=== PATIENT | male | born 1970 | race Caucasian/White ===

== ENCOUNTER 2019-01-17 05:05 | Emergency (ER) | payer MEDICAID ==
[~2019-01-17] VITALS: Ht 175.3 cm; Wt 114.0 kg
[2019-01-17] MEDS ORDERED: normal saline 1000ML IV soln IVB ONE (06:15)
[2019-01-17] MEDS ORDERED: ondansetron/PF 4mg/2ml inj IV ONE (06:15)
[2019-01-17] MEDS: morphine 4 MG/ML inj SYRINge IV PRN ×2 (07:06→07:59)
[2019-01-17 07:33] LABS: BASOPHILS % (AUTO) 0.5 % (0-1); EOSINOPHILS # (AUTO) 0.1 X10'3 (0-0.9); EOSINOPHILS % (AUTO) 1.3 % (0-6); HEMATOCRIT 40.1 % (42.0-52.0); HEMOGLOBIN 13.4 g/dl (14.0-17.9); LYMPHOCYTES # (AUTO) 1.3 X10'3 (1.1-4.8); MEAN CORPUSCULAR HEMOGLOBIN 31.6 PG (27.0-31.0); MEAN CORPUSCULAR HGB CONC 33.5 g/dL (33.0-36.5); MEAN CORPUSCULAR VOLUME 94.2 FL (78-98); MONOCYTES # (AUTO) 0.6 X10'3 (0-0.9); MONOCYTES % (AUTO) 8.9 % (2-12); NEUTROPHILS # (AUTO) 4.8 X10'3 (1.8-7.7); NEUTROPHILS % (AUTO) 70.3 % (42-75); PLATELET COUNT 173 X10'3 (140-440); RED BLOOD COUNT 4.26 X10'6 (4.70-6.10); RED CELL DISTRIBUTION WIDTH 14.3 % (11.5-14.5); WHITE BLOOD COUNT 6.8 X10'3 (4.5-11.0)
[2019-01-17 08:02] LABS: ALANINE AMINOTRANSFERASE 30 U/L (12-78); ALBUMIN 3.4 G/DL (3.4-5.0); ALBUMIN/GLOBULIN RATIO 0.9 (1.1-1.5); ALKALINE PHOSPHATASE 80 IU/L (46-116); ANION GAP 7 (8-16); ASPARTATE AMINO TRANSFERASE 12 U/L (10-37); BILIRUBIN,TOTAL 0.3 MG/DL (0.1-1.0); BLOOD UREA NITROGEN 13 MG/DL (7-18); BUN/CREATININE RATIO 18.3 (5.4-32.0); CALCIUM 9.2 MG/DL (8.5-10.1); CHLORIDE 104 MMOL/L (99-107); CREATININE 0.71 MG/DL (0.60-1.10); GLUCOSE 111 MG/DL (70-104); POTASSIUM 4.1 MMOL/L (3.5-5.1); SODIUM 140 MMOL/L (135-145); TOTAL CARBON DIOXIDE 28.6 MMOL/L (24-32); eGFR > 90 ML/MIN
[2019-01-17 08:04] LABS: CLARITY,URINE SLIGHTLY CLOUDY (Clear); COLOR,URINE YELLOW (Yellow); GLUCOSE, URINE NEGATIVE (Neg); KETONES,URINE NEGATIVE (Neg); LEUKOCYTE ESTERASE ,URINE NEGATIVE (Neg); NITRITES, URINE NEGATIVE (Neg); OCCULT BLOOD,URINE SMALL (Neg); PROTEIN,URINE NEGATIVE (Neg); UA COLLECTION TYPE CLN CATCH MIDSTREAM; UROBILINOGEN,URINE 0.2 E.U/dL (0.2-1.0)
[2019-01-17 08:05] VITALS: BP 146/98
[2019-01-17 08:10] LABS: HYALINE CASTS 0-3 /LPF (NEGATIVE); MUCUS STRANDS MANY /LPF (Neg); SQUAMOUS EPITHELIAL CELL,UR MANY /LPF (FEW)
[2019-01-17 08:11] LABS: BACTERIA,URINE 1+ /HPF (Neg); WBC,URINE 0-4 /HPF (0-4)
[2019-01-17 08:47] LABS: LIPASE 159 U/L (73-393)
[2019-01-17] MEDS ORDERED: famotidine 20mg tablet PO ONE (09:05)
[2019-01-17] MEDS ORDERED: mag hydrox/Alum hydrox/simeth 30ml oral suspension PO ONE (09:05)
[2019-01-17] MEDS ORDERED: simethicone 125mg capsule PO ONE (09:05)
[2019-01-17] MEDS ORDERED: HYDR-3965 PO (10:03)
[2019-01-17] MEDS ORDERED: FAMO40TA73 PO (10:03)
[2019-01-17] MEDS ORDERED: HYDROcodone/acetaminophen 5mg/325mg tablet PO ONE (10:10)
== END 2019-01-17 10:20 | disposition home or self-care (01) ==
LOC: ER 05:05
DX: K29.00 Acute gastritis without bleeding (principal); F17.200 Nicotine dependence, unspecified, uncomplicated; F12.90 Cannabis use, unspecified, uncomplicated; Z90.49 Acquired absence of other specified parts of digestive tract; Z98.890 Other specified postprocedural states; Z88.2 Allergy status to sulfonamides; Z88.1 Allergy status to other antibiotic agents; Z79.899 Other long term (current) drug therapy
CPT/HCPCS: 36415; 74176; 80053; 81001; 83690; 85025; 85610; 96361; 96374; 96375; 96376; 99284; J2270; J2405; J7030

== ENCOUNTER 2019-05-08 08:52 | Emergency (ER) | payer MEDICAID ==
[~2019-05-08] VITALS: Ht 172.7 cm; Wt 110.5 kg
[~2019-05-08 08:52] MED LIST: FAMO40TA73 PO; adenosine 3mg/ml 2ml vial IV ONE
[2019-05-08] MEDS ORDERED: adenosine 3mg/ml 2ml vial IV ONE ×3 (09:00→09:25)
[2019-05-08 09:25] LABS: BASOPHILS % (AUTO) 0.3 % (0-1); EOSINOPHILS # (AUTO) 0.2 X10'3 (0-0.9); EOSINOPHILS % (AUTO) 1.3 % (0-6); HEMATOCRIT 44.3 % (35.0-45.0); HEMOGLOBIN 14.9 g/dl (12.0-16.0); LYMPHOCYTES # (AUTO) 3.7 X10'3 (1.1-4.8); LYMPHOCYTES % (AUTO) 26.8 % (21-51); MEAN CORPUSCULAR HGB CONC 33.7 g/dL (33.0-36.5); MEAN CORPUSCULAR VOLUME 92.2 FL (78-98); MEAN PLATELET VOLUME 9.1 FL (7.4-10.4); MONOCYTES # (AUTO) 0.9 X10'3 (0-0.9); MONOCYTES % (AUTO) 6.8 % (2-12); NEUTROPHILS # (AUTO) 8.9 X10'3 (1.8-7.7); NEUTROPHILS % (AUTO) 64.8 % (42-75); PLATELET COUNT 287 X10'3 (140-440); RED CELL DISTRIBUTION WIDTH 13.6 % (11.5-14.5); WHITE BLOOD COUNT 13.7 X10'3 (4.5-11.0)
[2019-05-08] MEDS ORDERED: LORazepam 2 mg/ml vial IV ONE (09:30)
[2019-05-08] MEDS ORDERED: ondansetron/PF 4mg/2ml inj IV ONE (09:30)
[2019-05-08 09:37] LABS: PARTIAL THROMBOPLASTIN TIME 33 SECONDS (22-32)
[2019-05-08 09:38] LABS: ALBUMIN 3.9 G/DL (3.4-5.0); ALKALINE PHOSPHATASE 95 IU/L (46-116); ANION GAP 13 (8-16); ASPARTATE AMINO TRANSFERASE 38 U/L (10-37); BILIRUBIN,TOTAL 0.4 MG/DL (0.1-1.0); BLOOD UREA NITROGEN 17 MG/DL (7-18); CALCIUM 9.4 MG/DL (8.5-10.1); CHLORIDE 102 MMOL/L (99-107); CREATININE 1.06 MG/DL (0.40-0.90); GLUCOSE 215 MG/DL (70-104); POTASSIUM 3.9 MMOL/L (3.5-5.1); SODIUM 139 MMOL/L (135-145); TOTAL CARBON DIOXIDE 24.2 MMOL/L (24-32); TOTAL PROTEIN 7.8 G/DL (6.4-8.2); eGFR 55 ML/MIN
[2019-05-08 10:11] LABS: ALANINE AMINOTRANSFERASE 34 U/L (12-78)
[2019-05-08] MEDS ORDERED: METO-539 PO (10:37)
[2019-05-08 10:50] VITALS: BP 111/76
== END 2019-05-08 10:52 | disposition home or self-care (01) ==
LOC: ER 08:53 → EDSEX 08:53 → ER 10:52
DX: I47.1 Supraventricular tachycardia (principal); F12.90 Cannabis use, unspecified, uncomplicated; F10.99 Alcohol use, unspecified with unspecified alcohol-induced disorder; Z88.1 Allergy status to other antibiotic agents; Z88.2 Allergy status to sulfonamides; Z87.19 Personal history of other diseases of the digestive system; Z90.49 Acquired absence of other specified parts of digestive tract; Z98.890 Other specified postprocedural states; Z79.899 Other long term (current) drug therapy; Y90.9 Presence of alcohol in blood, level not specified
CPT/HCPCS: 36415; 71045; 80053; 83880; 84443; 84484; 85025; 85610; 85730; 93005; 96374; 96375; 99285; J0153; J2060; J2405; 99284

== ENCOUNTER 2020-09-05 12:59 | Emergency (ER) | payer MEDICAID ==
[~2020-09-05] VITALS: Ht 172.7 cm; Wt 110.6 kg
[~2020-09-05 12:59] MED LIST changes: -adenosine 3mg/ml 2ml vial IV ONE
[2020-09-05] MEDS ORDERED: aspirin 81mg tab.chew PO ONE (13:05)
[2020-09-05] MEDS ORDERED: adenosine 3mg/ml 2ml vial IV ONE ×3 (13:15)
[2020-09-05] MEDS ORDERED: normal saline 1000ML IV soln IVB ONE (13:15)
[2020-09-05 13:33] LABS: BASOPHILS # (AUTO) 0.1 X10'3 (0-0.2); BASOPHILS % (AUTO) 1.2 % (0-1); EOSINOPHILS # (AUTO) 0.1 X10'3 (0-0.9); EOSINOPHILS % (AUTO) 0.9 % (0-6); HEMATOCRIT 42.4 % (35.0-45.0); HEMOGLOBIN 14.3 g/dl (12.0-16.0); LYMPHOCYTES # (AUTO) 4.3 X10'3 (1.1-4.8); MEAN CORPUSCULAR HEMOGLOBIN 32.5 PG (27.0-31.0); MEAN CORPUSCULAR HGB CONC 33.7 g/dL (33.0-36.5); MEAN CORPUSCULAR VOLUME 96.3 FL (78-98); MEAN PLATELET VOLUME 9.6 FL (7.4-10.4); MONOCYTES # (AUTO) 0.7 X10'3 (0-0.9); MONOCYTES % (AUTO) 6.8 % (2-12); NEUTROPHILS # (AUTO) 5.4 X10'3 (1.8-7.7); NEUTROPHILS % (AUTO) 51.1 % (42-75); PLATELET COUNT 244 X10'3 (140-440); RED CELL DISTRIBUTION WIDTH 14.1 % (11.5-14.5); WHITE BLOOD COUNT 10.7 X10'3 (4.5-11.0)
[2020-09-05] MEDS ORDERED: LORazepam 2 mg/ml vial IV ONE (13:35)
[2020-09-05 13:45] LABS: D-DIMER 0.23 MG/L FEU (0-0.50)
[2020-09-05 13:49] LABS: ALANINE AMINOTRANSFERASE 42 U/L (12-78); ALBUMIN 3.8 G/DL (3.4-5.0); ALKALINE PHOSPHATASE 79 IU/L (46-116); ANION GAP 9 (8-16); ASPARTATE AMINO TRANSFERASE 40 U/L (10-37); BILIRUBIN,TOTAL 0.2 MG/DL (0.1-1.0); BLOOD UREA NITROGEN 18 MG/DL (7-18); BUN/CREATININE RATIO 21.2 (6.6-38.0); CALCIUM 9.3 MG/DL (8.5-10.1); CHLORIDE 107 MMOL/L (99-107); CREATININE 0.85 MG/DL (0.40-0.90); GLUCOSE 108 MG/DL (70-104); SODIUM 143 MMOL/L (135-145); TOTAL CARBON DIOXIDE 26.9 MMOL/L (24-32); TOTAL PROTEIN 7.6 G/DL (6.4-8.2); eGFR 71 ML/MIN
[2020-09-05 13:53] LABS: POTASSIUM 3.9 MMOL/L (3.5-5.1)
[2020-09-05 13:59] LABS: MAGNESIUM 2.3 MG/DL (1.5-2.4)
[2020-09-05 14:16] VITALS: BP 128/77
== END 2020-09-05 14:44 | disposition home or self-care (01) ==
LOC: ER 13:00
DX: I47.1 Supraventricular tachycardia (principal); E07.9 Disorder of thyroid, unspecified; F12.90 Cannabis use, unspecified, uncomplicated; Z90.49 Acquired absence of other specified parts of digestive tract; Z72.89 Other problems related to lifestyle; Z88.2 Allergy status to sulfonamides; Z79.899 Other long term (current) drug therapy
CPT/HCPCS: 36415; 71045; 80053; 83735; 83880; 84443; 84484; 85025; 85379; 93005; 96361; 96374; 96375; 99285; J0153; J2060; J7030

== ENCOUNTER 2021-02-19 13:32 | Emergency (ER) | payer MEDICAID ==
[~2021-02-19] VITALS: Ht 172.7 cm; Wt 103.0 kg
[2021-02-19] MEDS ORDERED: adenosine 3mg/ml 2ml vial IV ONE ×2 (13:45→14:05)
[2021-02-19] MEDS ORDERED: LORazepam 2 mg/ml vial IV ONE (13:55)
--- NOTE | 2021-02-19 14:03 | NUR ---
cardioversion by Dr. Dawn.
--- NOTE | 2021-02-19 14:07 | NUR ---
patient successfully cardioverted at 1407.
--- NOTE | 2021-02-19 14:07 | NUR ---
1403: 145/115mmhg, 99%, 209 HR. 1405: 164/110mmhg, 97%, 96 HR.
[2021-02-19] MEDS ORDERED: metoprolol tartrate 50mg tablet PO ONE (14:10)
[2021-02-19 14:12] LABS: BASOPHILS # (AUTO) 0.1 X10'3 (0-0.2); BASOPHILS % (AUTO) 1.3 % (0-1); EOSINOPHILS # (AUTO) 0.1 X10'3 (0-0.9); EOSINOPHILS % (AUTO) 0.8 % (0-6); HEMATOCRIT 43.8 % (35.0-45.0); HEMOGLOBIN 14.7 g/dl (12.0-16.0); LYMPHOCYTES # (AUTO) 4.1 X10'3 (1.1-4.8); LYMPHOCYTES % (AUTO) 35.1 % (21-51); MEAN CORPUSCULAR HEMOGLOBIN 31.6 PG (27.0-31.0); MEAN CORPUSCULAR HGB CONC 33.6 g/dL (33.0-36.5); MEAN PLATELET VOLUME 9.3 FL (7.4-10.4); MONOCYTES # (AUTO) 0.7 X10'3 (0-0.9); MONOCYTES % (AUTO) 6.4 % (2-12); NEUTROPHILS # (AUTO) 6.6 X10'3 (1.8-7.7); NEUTROPHILS % (AUTO) 56.4 % (42-75); PLATELET COUNT 299 X10'3 (140-440); RED BLOOD COUNT 4.66 X10'6 (4.20-5.60); RED CELL DISTRIBUTION WIDTH 13.6 % (11.5-14.5); WHITE BLOOD COUNT 11.6 X10'3 (4.5-11.0)
[2021-02-19 14:26] LABS: ALANINE AMINOTRANSFERASE 52 U/L (12-78); ALBUMIN 4.1 G/DL (3.4-5.0); ALBUMIN/GLOBULIN RATIO 1.1 (1.1-1.5); ALKALINE PHOSPHATASE 87 IU/L (46-116); ANION GAP 12 (8-16); ASPARTATE AMINO TRANSFERASE 63 U/L (10-37); BILIRUBIN,TOTAL 0.3 MG/DL (0.1-1.0); BLOOD UREA NITROGEN 20 MG/DL (7-18); BUN/CREATININE RATIO 17.7 (6.6-38.0); CALCIUM 9.4 MG/DL (8.5-10.1); CHLORIDE 106 MMOL/L (99-107); CREATININE 1.13 MG/DL (0.40-0.90); GLUCOSE 185 MG/DL (70-104); POTASSIUM 3.9 MMOL/L (3.5-5.1); SODIUM 142 MMOL/L (135-145); TOTAL CARBON DIOXIDE 24.2 MMOL/L (24-32); TOTAL PROTEIN 7.9 G/DL (6.4-8.2); eGFR 51 ML/MIN
[2021-02-19 15:02] VITALS: BP 123/77
== END 2021-02-19 15:05 | disposition home or self-care (01) ==
LOC: ER 13:32
DX: I47.1 Supraventricular tachycardia (principal); F12.10 Cannabis abuse, uncomplicated; Z88.2 Allergy status to sulfonamides; Z79.899 Other long term (current) drug therapy
CPT/HCPCS: 36415; 80053; 85025; 93005; 96374; 96375; 99284; J0153; J2060

== ENCOUNTER 2021-08-23 16:49 | Emergency (ER) | payer MEDICAID | END 2021-08-23 21:44 | disposition left against medical advice (07) | LOC: ER 16:50 | DX: Z53.21 Procedure and treatment not carried out due to patient leaving prior to being seen by health care provider (principal) ==

== ENCOUNTER 2023-01-18 16:57 | Emergency (ER) | payer MEDICAID ==
[~2023-01-18] VITALS: Ht 172.7 cm; Wt 110.0 kg
[2023-01-18 17:20] LABS: EOSINOPHILS # (AUTO) 0.2 X10'3 (0-0.9); NEUTROPHILS # (AUTO) 5.2 X10'3 (1.8-7.7)
[2023-01-18 17:22] LABS: BASOPHILS % (AUTO) 0.5 % (0-1); EOSINOPHILS % (AUTO) 2.2 % (0-6); HEMATOCRIT 43.1 % (35.0-45.0); HEMOGLOBIN 14.8 g/dl (12.0-16.0); LYMPHOCYTES # (AUTO) 1.7 X10'3 (1.1-4.8); LYMPHOCYTES % (AUTO) 22.4 % (21-51); MEAN CORPUSCULAR HEMOGLOBIN 32.4 PG (27.0-31.0); MEAN CORPUSCULAR HGB CONC 34.4 g/dL (33.0-36.5); MEAN CORPUSCULAR VOLUME 93.9 FL (78-98); MEAN PLATELET VOLUME 9.2 FL (7.4-10.4); MONOCYTES # (AUTO) 0.7 X10'3 (0-0.9); MONOCYTES % (AUTO) 8.4 % (2-12); NEUTROPHILS % (AUTO) 66.5 % (42-75); PLATELET COUNT 171 X10'3 (140-440); RED BLOOD COUNT 4.58 X10'6 (4.20-5.60); RED CELL DISTRIBUTION WIDTH 13.6 % (11.5-14.5); WHITE BLOOD COUNT 7.8 X10'3 (4.5-11.0)
[2023-01-18 17:34] LABS: ALANINE AMINOTRANSFERASE 138 U/L (12-78); ALBUMIN 3.8 G/DL (3.4-5.0); ALKALINE PHOSPHATASE 110 IU/L (46-116); ANION GAP 8 (8-16); ASPARTATE AMINO TRANSFERASE 168 U/L (10-37); BILIRUBIN,TOTAL 0.6 MG/DL (0.1-1.0); BLOOD UREA NITROGEN 15 MG/DL (7-18); CALCIUM 9.4 MG/DL (8.5-10.1); CHLORIDE 102 MMOL/L (99-107); CREATININE 0.94 MG/DL (0.40-0.90); GLUCOSE 113 MG/DL (70-104); POTASSIUM 3.9 MMOL/L (3.5-5.1); SODIUM 139 MMOL/L (135-145); TOTAL CARBON DIOXIDE 28.8 MMOL/L (24-32); TOTAL PROTEIN 7.6 G/DL (6.4-8.2); eGFR 62 ML/MIN
[2023-01-18 18:42] VITALS: BP 140/98
[2023-01-18] MEDS ORDERED: PRED20TA PO (20:01)
[2023-01-18] MEDS ORDERED: AZIT-164 PO (20:01)
[2023-01-18] MEDS ORDERED: BENZ-38 PO (20:36)
== END 2023-01-18 20:39 | disposition home or self-care (01) ==
LOC: ER 16:58
DX: J40 Bronchitis, not specified as acute or chronic (principal); E03.9 Hypothyroidism, unspecified; F12.10 Cannabis abuse, uncomplicated; F17.200 Nicotine dependence, unspecified, uncomplicated; Z90.49 Acquired absence of other specified parts of digestive tract; Z88.2 Allergy status to sulfonamides; Z88.1 Allergy status to other antibiotic agents; Z79.899 Other long term (current) drug therapy
CPT/HCPCS: 36415; 71045; 80053; 83880; 84484; 85025; 93005; 99285

== ENCOUNTER 2025-03-23 10:14 | Emergency (ER) | payer MEDICAID ==
[~2025-03-23] VITALS: Ht 172.7 cm; Wt 100.0 kg
[2025-03-23 10:17] VITALS: BP 134/112; PULSE 96; O2SAT 99
--- NOTE | 2025-03-23 10:41 | Physician Documentation ---
History of Present Illness ~ Chief Complaint: Arm Pain Stated Complaint: ARM PAIN Time Seen by MD: 10:26 Primary Medical Doctor: NONE, FROM [facility] Source: patient Mode of Arrival: POV Exam Limitations: no limitations HPI 54-year-old female approximately 5 days ago woke up with left arm pain, upper arm, shoulder extending into her neck with neuropathy down to her fingertips. Patient denies any traumatic event including falls. Patient concerned because she has difficulty with ADLs requesting pain management with opiates patient does have a primary care provider Tetanus within 5 years: Yes Medication Reconciliation Allergies: Coded Allergies: Sulfa (Sulfonamide Antibiotics) (Verified Allergy, Unknown, 01/18/23) cephalexin (Verified Allergy, Unknown, 01/18/23) Scheduled Famotidine (Pepcid), 1 TAB PO DAILY Past Medical History Past Medical History: *CARDIOVASCULAR*, *GI/HEPATOBILIARY*, Thyroid (unspecifi ed) Past Surgical History: cholecystectomy, orthopedic surgeries Other Past Surgical History: BKA, cardiac ablation Alcohol Use: Occasionally Drug Use: marijuana Lives In: Home Review of Systems All Other Systems at this time: Reviewed and Negative Musculoskeletal: Reports: see HPI Physical Exam Vital Signs: Temperature: 96.1, Source: Temporal, Heart Rate: 96, Respiratory Rate: 16, BP: 134/112, Pulse Oximetry: 99, Weight: 100.000 Oxygen Flow Rate: 0 Physical Exam General: Alert, no apparent distress. HEENT: PERRL, EOMI, no injection, moist mucous membranes. Neck: Full range of motion. Respiratory: no respiratory distress. Chest: No accessory muscle use. Cardiovascular: Appears well perfused Extremities: No obvious deformity splinting left arm can move fingers pain to the left upper arm with light touch no erythema, deformities, warmth trapezius with pain light touch Neurologic: Oriented x4. Psychiatric: Normal mood and affect. Skin: Normal color, warm and dry. No edema, no ecchymosis. Progress Results/Orders Results/Orders Completed Orders - HAILY SHERIDAN NP Ketorolac Trometh 30mg/Ml Vial (Toradol (03/23/25 10:45) Lidocaine 5% Patch (Lidoderm 5% Patch) (03/23/25 10:45) Medications Received in ER Medications (Trade) Dose Ordered Sig/Francisco Route PRN Reason Start Time Stop Time Status Last Admin Dose Admin (Toradol inj. 30mg/ml) 30 mg ONCE ONCE IM 03/23/25 10:45 03/23/25 10:46 DC 03/23/25 10:51 30 MG (Lidoderm 5% Patch) 2 patch ONCE ONCE TP 03/23/25 10:45 03/23/25 10:46 DC 03/23/25 10:51 2 PATCH Vital Signs 03/23/25 03/23/25 10:17 10:51 Temp 96.1 Pulse 96 Resp 16 16 B/P (MAP) 134/112 Pulse Ox 99 O2 Flow Rate 0 EKG/XRAY/CT/US/VASC/MRI Bone/Soft Tissue X-Ray (Ext.) : Additional Comment X-ray left shoulder Technique: AP internal and external rotation views and transscapular views REASON FOR EXAM: LEFT SHOULDER PAIN INDICATION: LEFT SHOULDER PAIN FINDINGS: No fractures or dislocations. No erosions or periosteal reaction. Articular surfaces are smooth. There is a sancho of calcification in the soft tissues adjacent to the greater tuberosity IMPRESSION: 1. Calcific tendinosis Medical Decision Making Findings Also patient claims no traumatic events or causality to the acute left arm pain x5 days an x-ray to evaluate for any osseous abnormality. Patient requesting opiate pain management when discussing potentially torticollis as a differential. X-ray evaluated and shows calcific tendinitis chronic condition patient to follow up with primary care for potentially physical therapy and orthopedics to evaluate further Departure Time of Disposition: 11:12 Disposition: 01 HOME / SELF CARE / HOMELESS Impression: Primary Impression: Left upper arm pain Additional Impressions: Muscle strain of forearm Tendinitis Condition: Stable Discharge Instructions: Muscle Strain, [id number], Tendinitis Additional Instructions: X-ray does not show any fractures but it does show calcific tendinitis which means that there was some inflammatory changes to the tendon awhile ago which is now calcified this can be treated with physical therapy but also Orthopedics. Follow up with primary care to evaluate for further imaging including MRI if needed and orthopedic referral for further treatment and evaluation Referrals: NO PRIMARY CARE PROVIDER (PCP) Prescriptions Meloxicam (Meloxicam) 15 Mg Tablet 1 TAB PO DAILY for 30 Days, #30 TAB 0 Refills Prov: HAILY SHERIDAN NP 9/14/25 Lidocaine (Lidocaine) 5 % Adh..patch 1 PATCH TOP DAILY for 30 Days, #30 PATCH 0 Refills Prov: HAILY SHERIDAN NP 03/23/25 Education Educated: Patient Educated regarding: diagnosis, treatment, need for follow up Signature Scribe Signature: No scribe Attestation: The note accurately reflects work and decisions made by me.Haily Sheridan - OFFICE SUPPORT ASSISTANT 03/23/25 10:41 HAILY SHERIDAN NP Mar 23, 2025 10:41
--- NOTE | 2025-03-23 10:45 | RADIOLOGY REPORT ---
X-ray left shoulder Technique: AP internal and external rotation views and transscapular views REASON FOR EXAM: LEFT SHOULDER PAIN INDICATION: LEFT SHOULDER PAIN FINDINGS: No fractures or dislocations. No erosions or periosteal reaction. Articular surfaces are smooth. There is a sancho of calcification in the soft tissues adjacent to the greater tuberosity IMPRESSION: 1. Calcific tendinosis
[2025-03-23] MEDS: ketorolac trometh 30MG/ML vial 30 MG/ML VIAL IM ONE (10:51)
[2025-03-23] MEDS ORDERED: MELO-102 PO (11:12)
[2025-03-23] MEDS ORDERED: LIDO700A47 TOP (11:12)
[2025-03-23 11:16] VITALS: RESP 16
[2025-03-23 11:29] VITALS: TEMP 96.1
== END 2025-03-23 11:31 | disposition home or self-care (01) ==
LOC: ER 10:15
DX: S56.812A Strain of other muscles, fascia and tendons at forearm level, left arm, initial encounter (principal); G62.9 Polyneuropathy, unspecified; M75.32 Calcific tendinitis of left shoulder; F12.90 Cannabis use, unspecified, uncomplicated; Z88.2 Allergy status to sulfonamides; Z88.1 Allergy status to other antibiotic agents; Z90.49 Acquired absence of other specified parts of digestive tract; Z79.899 Other long term (current) drug therapy; Z72.89 Other problems related to lifestyle; X58.XXXA Exposure to other specified factors, initial encounter; Y93.89 Activity, other specified; Y92.89 Other specified places as the place of occurrence of the external cause; Y99.8 Other external cause status
CPT/HCPCS: 73030; 96372; 99283; J1885